=== PATIENT | female | born 1975 | race Caucasian/White ===

== ENCOUNTER 2022-06-18 18:08 | Emergency (ER) | payer BC, OTHER ==
[2022-06-18] MEDS ORDERED: Sodium Chloride 0.9% 10 ML Syringe FLUSH PRN (18:44)
[2022-06-18] MEDS ORDERED: Lactated Ringers 1,000 ML IV ONE (18:45)
[2022-06-18 19:56] LABS: ESTIMATED GFR 69 mL/min (>60)
[2022-06-18] MEDS ORDERED: Magnesium Oxide 400 MG Tab PO ONE (20:38)
[2022-06-18] MEDS ORDERED: Potassium Chloride 20 MEQ Tab.ER PO ONE (20:38)
== END 2022-06-18 21:38 | disposition home or self-care (01) ==
LOC: JD.ED 18:08
DX: T67.1XXA Heat syncope, initial encounter (principal); I10 Essential (primary) hypertension
CPT/HCPCS: 36415; 71045; 80053; 80307; 81001; 83735; 84484; 85025; 86140; 87086; 93005; 96360; 99284; A9270; J3490; J7120